=== PATIENT | male | born 1945 | race Caucasian/White ===

== ENCOUNTER 2020-08-09 18:03 | Inpatient (IN) ==
[2020-08-09 19:39] LABS: Basophils % 0.4 % (0.0-0.8); Eosinophils % 0.2 % (0.00-10.9); Hematocrit 42.5 VOL% (42.0-52.0); Immature Granulocytes % 0.6 %; Immature Granulocytes Absolute 0.03 #; Lymphocytes # 0.4 10*3/uL (1.4-4.0); Lymphocytes % 7.8 % (21.2-54.2); Mean Corpuscular HGB Conc 32.9 GM/DL (32-36); Mean Corpuscular Volume 87.8 FL (87-102); Mean Platelet Volume 10.4 FL (9.6-12.0); Monocytes % 7.6 % (1.7-12.7); Neutrophils % 83.4 % (38.7-73.9); Platelet Count 105 T/CUMM (130-400); Red Blood Count 4.84 MC/CUMM (3.8-5.5); Red Cell Distribution Width 14.2 % (9.3-17.3); White Blood Count 4.7 T/CUMM (4-12)
[2020-08-09 19:56] LABS: INR 1.1; PT Patient Result 11.9 SECS (9.8-11.9)
[2020-08-09 20:11] LABS: Prolactin 8.9 NG/ML
[2020-08-09 20:15] LABS: Alanine Aminotransferase 30 U/L (16-61); Albumin 3.2 G/DL (3.4-5.0); Alkaline Phosphatase 39 U/L (45-117); Aspartate Amino Transferase 32 U/L (0-37); Blood Urea Nitrogen 27 MG/DL (7-18); Calcium 8.3 MG/DL (8.5-10.1); Estimated Glom Filtration Rate 52 ML/MIN; Glucose 158 MG/DL (74-106); Osmolality,Calculated 280.8 MOS/KG (273-304); Total Protein 6.9 G/DL (6.4-8.3)
[2020-08-09 20:24] LABS: Bilirubin,Urine Negative (Negative); Blood, Urine Moderate mg/dL (Negative); Glucose,Urine (UA) 50 mg/dL (Negative); Ketones,Urine 5 mg/dL (Negative); Nitrite,Urine Negative (Negative); Protein,Urine 100 MG/DL; RBC,Urine 1 /HPF (0-4); Squamous Epithelial Cell,Urine Occasional /HPF (0-10); Urine Appearance CLEAR (Clear); Urine Color Yellow (Yellow); Urine Specific Gravity 1.019 (1.001-1.035); Urine Urobilinogen < 2.0 EU/DL (0.2-1.0); WBC,Urine <1 /HPF (0-6)
[2020-08-09 20:28] LABS: Barbiturates Screen,Urine Negative (Negative); Benzodiazepines Screen,Urine Negative (Negative); Cannabinoid Screen,Urine Negative (Negative); Opiate Screen,Urine Negative (Negative); Phencyclidine Screen,Urine Negative (Negative)
[2020-08-09] MEDS ORDERED: ENOXAPARIN 100 MG/ML SYRINGE SUBCUT STA (22:55)
[2020-08-09] MEDS ORDERED: ENOXAPARIN 120 MG/0.8 ML SYRINGE SUBCUT STA (22:59)
[2020-08-09] MEDS ORDERED: ACETAMINOPHEN 325 MG TABLET PO PRN (23:37)
[2020-08-09] MEDS ORDERED: SIMETHICONE CHEW 125 MG TABLET PO PRN (23:37)
[2020-08-09] MEDS ORDERED: DOCUSATE SODIUM 100 MG CAPSULE PO PRN (23:37)
[2020-08-09] MEDS ORDERED: hydrALAZINE 20 MG/1 ML VIAL IV PRN (23:37)
[2020-08-09] MEDS ORDERED: DEXTROSE 50% 25 GM/50 ML VIAL IV PRN ×2 (23:37)
[2020-08-09] MEDS ORDERED: GLUCAGON 1 MG VIAL IM PRN ×2 (23:37)
[2020-08-09] MEDS ORDERED: guaiFENesin/DM ER 600-30 MG TABLET PO PRN (23:37)
[2020-08-09] MEDS ORDERED: NICOTINE 21 MG/24 HR PATCH TRANSDERM PRN (23:37)
[2020-08-09] MEDS ORDERED: BISACODYL 5 MG TABLET PO PRN (23:37)
[2020-08-09] MEDS ORDERED: ZALEPLON 5 MG CAPSULE PO PRN (23:37)
[2020-08-09] MEDS ORDERED: ONDANSETRON 4 MG/2 ML VIAL IV PRN (23:37)
[2020-08-09] MEDS ORDERED: AZITHROMYCIN INJ 500 MG in SODIUM CHLORIDE 0.9% 250 ML IV SCH (23:45)
[2020-08-09] MEDS ORDERED: ALBUTEROL INHALER 18 GM INH PRN (23:53)
[2020-08-10] MEDS: ALBUTEROL INHALER 18 GM INH SCH ×5 (04:18→18:09)
[2020-08-10] MEDS: LEVOTHYROXINE 137 MCG TABLET PO SCH (06:10)
[2020-08-10 06:21] LABS: Basophils % 0.5 % (0.0-0.8); Hematocrit 41.4 VOL% (42.0-52.0); Hemoglobin 13.3 GM/DL (14.0-18.0); Immature Granulocytes % 0.5 %; Immature Granulocytes Absolute 0.02 #; Lymphocytes # 0.6 10*3/uL (1.4-4.0); Lymphocytes % 14.6 % (21.2-54.2); Mean Corpuscular HGB Conc 32.1 GM/DL (32-36); Mean Corpuscular Volume 89.8 FL (87-102); Mean Platelet Volume 10.9 FL (9.6-12.0); Monocytes % 12.1 % (1.7-12.7); Neutrophils % 72.3 % (38.7-73.9); Platelet Count 87 T/CUMM (130-400); Red Blood Count 4.61 MC/CUMM (3.8-5.5); Red Cell Distribution Width 14.3 % (9.3-17.3); White Blood Count 3.9 T/CUMM (4-12)
[2020-08-10 06:50] LABS: Albumin 2.7 G/DL (3.4-5.0); Bilirubin,Total 0.5 MG/DL (0.2-1.0); Calcium 8.1 MG/DL (8.5-10.1); Osmolality,Calculated 286.3 MOS/KG (273-304); Total Protein 6.3 G/DL (6.4-8.3)
[2020-08-10 07:13] LABS: Platelet Estimate Decreased
[2020-08-10] MEDS ORDERED: MELATONIN 3 MG TABLET PO PRN (08:19)
[2020-08-10] MEDS: INSULIN LISPRO 100 UNIT/ML SUBCUT SCH ×4 (08:44→21:49)
[2020-08-10] MEDS: PENTOXIFYLLINE 400 MG TABLET PO SCH ×2 (09:24→20:55)
[2020-08-10] MEDS: FAMOTIDINE 20 MG TABLET PO SCH ×2 (09:24→20:55)
[2020-08-10] MEDS: ASCORBIC ACID 500 MG TABLET PO SCH ×2 (09:24→20:55)
[2020-08-10] MEDS: ZINC GLUCONATE 50 MG TABLET PO SCH (09:24)
[2020-08-10] MEDS: AZITHROMYCIN 250 MG TABLET PO SCH (09:24)
[2020-08-10] MEDS: carvediloL 12.5 MG TABLET PO SCH ×2 (09:24→17:21)
[2020-08-10] MEDS: CHOLECALCIFEROL 5,000 UNIT TABLET PO SCH (09:24)
[2020-08-10] MEDS: CETIRIZINE 10 MG TABLET PO SCH (09:24)
[2020-08-10] MEDS: ISOSORBIDE DINITRATE 20 MG TABLET PO SCH (09:24)
[2020-08-10] MEDS: PANTOPRAZOLE 40 MG TABLET PO SCH (09:24)
[2020-08-10] MEDS ORDERED: REMDESIVIR 200 MG in SODIUM CHLORIDE 0.9% 210 ML IV ONE (10:00)
[2020-08-10] MEDS ORDERED: ENOXAPARIN 100 MG/ML SYRINGE SUBCUT SCH (12:00)
[2020-08-10] MEDS: SODIUM CHLORIDE 0.9% 1,000 ML IV SCH ×2 (14:58)
[2020-08-10] MEDS: APIXABAN 5 MG TABLET PO SCH ×2 (17:20→20:55)
[2020-08-10] MEDS: ATORVASTATIN 20 MG TABLET PO SCH (20:55)
[2020-08-11] MEDS: SODIUM CHLORIDE 0.9% 1,000 ML IV SCH ×2 (04:20→19:15)
[2020-08-11 05:15] LABS: Basophils % 0.3 % (0.0-0.8); Hematocrit 42.8 VOL% (42.0-52.0); Hemoglobin 13.7 GM/DL (14.0-18.0); Immature Granulocytes % 0.8 %; Immature Granulocytes Absolute 0.03 #; Lymphocytes # 0.6 10*3/uL (1.4-4.0); Lymphocytes % 17.1 % (21.2-54.2); Mean Corpuscular Volume 90.9 FL (87-102); Neutrophils % 68.8 % (38.7-73.9); Platelet Count 95 T/CUMM (130-400); Red Blood Count 4.71 MC/CUMM (3.8-5.5); Red Cell Distribution Width 14.2 % (9.3-17.3); White Blood Count 3.6 T/CUMM (4-12)
[2020-08-11 06:01] LABS: Albumin 2.7 G/DL (3.4-5.0); Bilirubin,Total 0.7 MG/DL (0.2-1.0); Ferritin 437.5 ng/ml (26-388); Osmolality,Calculated 287.1 MOS/KG (273-304)
[2020-08-11] MEDS: ALBUTEROL INHALER 18 GM INH SCH ×5 (06:21→19:15)
[2020-08-11] MEDS: LEVOTHYROXINE 137 MCG TABLET PO SCH (06:29)
[2020-08-11] MEDS: INSULIN LISPRO 100 UNIT/ML SUBCUT SCH ×4 (08:17→22:13)
[2020-08-11] MEDS: ASCORBIC ACID 500 MG TABLET PO SCH ×2 (09:53→22:13)
[2020-08-11] MEDS: AZITHROMYCIN 250 MG TABLET PO SCH (09:53)
[2020-08-11] MEDS: CHOLECALCIFEROL 5,000 UNIT TABLET PO SCH (09:53)
[2020-08-11] MEDS: CETIRIZINE 10 MG TABLET PO SCH (09:54)
[2020-08-11] MEDS: ZINC GLUCONATE 50 MG TABLET PO SCH (09:54)
[2020-08-11] MEDS: PENTOXIFYLLINE 400 MG TABLET PO SCH ×2 (09:54→22:13)
[2020-08-11] MEDS: APIXABAN 5 MG TABLET PO SCH ×2 (09:54→22:13)
[2020-08-11] MEDS: FAMOTIDINE 20 MG TABLET PO SCH ×2 (09:54→22:13)
[2020-08-11] MEDS: carvediloL 12.5 MG TABLET PO SCH ×2 (09:55→18:41)
[2020-08-11] MEDS: PANTOPRAZOLE 40 MG TABLET PO SCH (09:55)
[2020-08-11] MEDS: ISOSORBIDE DINITRATE 20 MG TABLET PO SCH (09:55)
[2020-08-11] MEDS: REMDESIVIR 100 MG in SODIUM CHLORIDE 0.9% 100 ML IV SCH (13:24)
[2020-08-11] MEDS: ATORVASTATIN 20 MG TABLET PO SCH (22:13)
[2020-08-12] MEDS: ALBUTEROL INHALER 18 GM INH SCH ×7 (01:00→22:10)
[2020-08-12] MEDS: LEVOTHYROXINE 137 MCG TABLET PO SCH (06:04)
[2020-08-12] MEDS: INSULIN LISPRO 100 UNIT/ML SUBCUT SCH ×3 (07:11→15:41)
[2020-08-12] MEDS: SODIUM CHLORIDE 0.9% 1,000 ML IV SCH ×2 (09:40→21:31)
[2020-08-12] MEDS: REMDESIVIR 100 MG in SODIUM CHLORIDE 0.9% 100 ML IV SCH (09:41)
[2020-08-12] MEDS: carvediloL 12.5 MG TABLET PO SCH ×3 (09:42→16:12)
[2020-08-12] MEDS: AZITHROMYCIN 250 MG TABLET PO SCH (09:42)
[2020-08-12] MEDS: APIXABAN 5 MG TABLET PO SCH ×2 (09:42→21:29)
[2020-08-12] MEDS: FAMOTIDINE 20 MG TABLET PO SCH ×2 (09:42→21:29)
[2020-08-12] MEDS: CETIRIZINE 10 MG TABLET PO SCH (09:43)
[2020-08-12] MEDS: PANTOPRAZOLE 40 MG TABLET PO SCH (09:43)
[2020-08-12] MEDS: ASCORBIC ACID 500 MG TABLET PO SCH ×2 (09:43→21:29)
[2020-08-12] MEDS: ISOSORBIDE DINITRATE 20 MG TABLET PO SCH (09:43)
[2020-08-12] MEDS: ZINC GLUCONATE 50 MG TABLET PO SCH (09:44)
[2020-08-12] MEDS: CHOLECALCIFEROL 5,000 UNIT TABLET PO SCH (09:44)
[2020-08-12] MEDS: PENTOXIFYLLINE 400 MG TABLET PO SCH ×2 (09:44→21:29)
[2020-08-12] MEDS: ATORVASTATIN 20 MG TABLET PO SCH (21:29)
[2020-08-13] MEDS: INSULIN LISPRO 100 UNIT/ML SUBCUT SCH ×5 (04:52→20:58)
[2020-08-13] MEDS: ALBUTEROL INHALER 18 GM INH SCH ×6 (04:54→22:40)
[2020-08-13 05:59] LABS: Albumin 2.4 G/DL (3.4-5.0); Bilirubin,Total 0.6 MG/DL (0.2-1.0); Calcium 8.1 MG/DL (8.5-10.1); Osmolality,Calculated 294.7 MOS/KG (273-304)
[2020-08-13] MEDS: LEVOTHYROXINE 137 MCG TABLET PO SCH (06:29)
[2020-08-13] MEDS: APIXABAN 5 MG TABLET PO SCH ×2 (10:20→20:33)
[2020-08-13] MEDS: CHOLECALCIFEROL 5,000 UNIT TABLET PO SCH (10:20)
[2020-08-13] MEDS: ZINC GLUCONATE 50 MG TABLET PO SCH (10:20)
[2020-08-13] MEDS: carvediloL 12.5 MG TABLET PO SCH ×2 (10:21→17:17)
[2020-08-13] MEDS: ISOSORBIDE DINITRATE 20 MG TABLET PO SCH (10:21)
[2020-08-13] MEDS: ASCORBIC ACID 500 MG TABLET PO SCH ×2 (10:21→20:34)
[2020-08-13] MEDS: FAMOTIDINE 20 MG TABLET PO SCH ×2 (10:21→20:33)
[2020-08-13] MEDS: PENTOXIFYLLINE 400 MG TABLET PO SCH ×2 (10:21→20:34)
[2020-08-13] MEDS: AZITHROMYCIN 250 MG TABLET PO SCH (10:22)
[2020-08-13] MEDS: CETIRIZINE 10 MG TABLET PO SCH (10:22)
[2020-08-13] MEDS: PANTOPRAZOLE 40 MG TABLET PO SCH (10:22)
[2020-08-13] MEDS: REMDESIVIR 100 MG in SODIUM CHLORIDE 0.9% 100 ML IV SCH (10:23)
[2020-08-13] MEDS: SODIUM CHLORIDE 0.9% 1,000 ML IV SCH (18:25)
[2020-08-13] MEDS: ATORVASTATIN 20 MG TABLET PO SCH (20:34)
[2020-08-14] MEDS: ALBUTEROL INHALER 18 GM INH SCH ×4 (03:45→15:00)
[2020-08-14 06:02] LABS: Basophils % 0.3 % (0.0-0.8); Eosinophils # 0.1 10*3/uL (0.0-0.87); Eosinophils % 2.6 % (0.00-10.9); Hematocrit 41.7 VOL% (42.0-52.0); Hemoglobin 13.5 GM/DL (14.0-18.0); Immature Granulocytes % 0.5 %; Immature Granulocytes Absolute 0.02 #; Lymphocytes # 0.7 10*3/uL (1.4-4.0); Lymphocytes % 18.3 % (21.2-54.2); Mean Corpuscular HGB Conc 32.4 GM/DL (32-36); Mean Corpuscular Volume 89.5 FL (87-102); Mean Platelet Volume 10.7 FL (9.6-12.0); Monocytes % 8.5 % (1.7-12.7); Neutrophils % 69.8 % (38.7-73.9); Platelet Count 106 T/CUMM (130-400); Red Blood Count 4.66 MC/CUMM (3.8-5.5); Red Cell Distribution Width 14.1 % (9.3-17.3); White Blood Count 3.9 T/CUMM (4-12)
[2020-08-14 06:11] LABS: Albumin 2.3 G/DL (3.4-5.0); Bilirubin,Total 0.4 MG/DL (0.2-1.0); Ferritin 694.5 ng/ml (26-388); Osmolality,Calculated 293.7 MOS/KG (273-304); Total Protein 5.6 G/DL (6.4-8.3)
[2020-08-14] MEDS: SODIUM CHLORIDE 0.9% 1,000 ML IV SCH ×2 (06:43→14:59)
[2020-08-14] MEDS: LEVOTHYROXINE 137 MCG TABLET PO SCH (06:44)
[2020-08-14] MEDS: INSULIN LISPRO 100 UNIT/ML SUBCUT SCH ×2 (08:52→12:20)
[2020-08-14] MEDS: REMDESIVIR 100 MG in SODIUM CHLORIDE 0.9% 100 ML IV SCH (10:04)
[2020-08-14] MEDS: PANTOPRAZOLE 40 MG TABLET PO SCH (10:08)
[2020-08-14] MEDS: ISOSORBIDE DINITRATE 20 MG TABLET PO SCH (10:08)
[2020-08-14] MEDS: CHOLECALCIFEROL 5,000 UNIT TABLET PO SCH (10:08)
[2020-08-14] MEDS: AZITHROMYCIN 250 MG TABLET PO SCH (10:09)
[2020-08-14] MEDS: ZINC GLUCONATE 50 MG TABLET PO SCH (10:09)
[2020-08-14] MEDS: carvediloL 12.5 MG TABLET PO SCH (10:09)
[2020-08-14] MEDS: ASCORBIC ACID 500 MG TABLET PO SCH (10:09)
[2020-08-14] MEDS: PENTOXIFYLLINE 400 MG TABLET PO SCH (10:10)
[2020-08-14] MEDS: FAMOTIDINE 20 MG TABLET PO SCH (10:10)
[2020-08-14] MEDS: APIXABAN 5 MG TABLET PO SCH (10:10)
[2020-08-14] MEDS: CETIRIZINE 10 MG TABLET PO SCH (10:15)
[2020-08-14 12:20] VITALS: BP 116/68
[2020-08-16] MEDS ORDERED: APIXABAN 5 MG TABLET PO SCH (21:00)
== END 2020-08-14 16:11 | disposition home health service (06) | DRG 177 ==
LOC: EDBD → EDUNIT# → N.ED 18:03 → SUATTDRO 23:37 → N.EDINP 23:37 → N.2E 08-10 01:58
PROVIDERS: ADMIT Family Medicine; ATTEND Internal Medicine